=== PATIENT | female | born 1955 | race Caucasian/White ===

== ENCOUNTER → 2018-06-07 15:14 | Outpatient (CLI) | payer OTHER, SELFPAY ==
--- NOTE | 2018-06-07 | DI.MG.S_ITS ---
BILATERAL DIGITAL SCREENING MAMMOGRAM 3D/2D WITH CAD: 06/07/2018 CLINICAL: Routine screening. Comparison is made to exams dated: 05/06/2017 mammogram, 05/05/2016 mammogram, and 04/17/2015 mammogram - [facility]. The tissue of both breasts is heterogeneously dense. This may lower the sensitivity of mammography. Current study was also evaluated with a Computer Aided Detection (CAD) system. There are benign calcifications in the left breast. No significant masses, calcifications, or other findings are seen in either breast. There has been no significant interval change. IMPRESSION: BENIGN There is no mammographic evidence of malignancy. A 1 year screening mammogram is recommended. This exam was interpreted at Station ID: [id number]. NOTE: For mammograms, a report in lay terms will be sent to the patient. Approximately 15% of breast malignancies will not be visualized mammographically. In the management of a palpable breast mass, a negative mammogram must not discourage biopsy of a clinically suspicious lesion. Electronically Signed By: Cody dempsey/blake:06/07/2018 16:38:38 letter sent: Normal Exam ACR BI-RADS Category 2: Benign Finding(s) 3342F
== END ==
PROVIDERS: PCP Nurse Practitioner Family; Visit Provider Nurse Practitioner Family
DX: Z12.31 Encounter for screening mammogram for malignant neoplasm of breast (principal)
CPT/HCPCS: 77063; 77067

== ENCOUNTER → 2018-07-07 14:38 | Outpatient (CLI) | payer OTHER, SELFPAY | PROVIDERS: PCP Nurse Practitioner Family; Visit Provider Nurse Practitioner Family | DX: M85.852 Other specified disorders of bone density and structure, left thigh (principal) | CPT/HCPCS: 77080 ==

== ENCOUNTER → 2019-06-28 16:41 | Outpatient (CLI) | payer BC, SELFPAY ==
--- NOTE | 2019-06-28 16:45 | DI.MG.S_ITS ---
BILATERAL DIGITAL SCREENING MAMMOGRAM 3D/2D WITH CAD: 06/28/2019 CLINICAL: Routine screening. Comparison is made to exams dated: 06/07/2018 mammogram, 05/06/2017 mammogram, and 05/05/2016 mammogram - [facility]. The tissue of both breasts is heterogeneously dense. This may lower the sensitivity of mammography. Current study was also evaluated with a Computer Aided Detection (CAD) system. There are benign masses in the right breast. There also are benign calcifications and masses in the left breast. No significant masses, calcifications, or other findings are seen in either breast. There has been no significant interval change. IMPRESSION: There is no mammographic evidence of malignancy. A 1 year screening mammogram is recommended. This exam was interpreted at Station ID: [id number]. NOTE: For mammograms, a report in lay terms will be sent to the patient. Approximately 15% of breast malignancies will not be visualized mammographically. In the management of a palpable breast mass, a negative mammogram must not discourage biopsy of a clinically suspicious lesion. Electronically Signed By: Madison traore/blake:06/29/2019 07:45:24 letter sent: Normal Exam ACR BI-RADS Category 2: Benign Finding(s) 3342F
== END ==
PROVIDERS: PCP Nurse Practitioner Family; Visit Provider Nurse Practitioner Family
DX: Z12.31 Encounter for screening mammogram for malignant neoplasm of breast (principal)
CPT/HCPCS: 77063; 77067

== ENCOUNTER → 2021-07-25 15:14 | Outpatient (CLI) | payer OTHER, SELFPAY ==
--- NOTE | 2021-07-25 15:17 | DI.MG.S_ITS ---
BILATERAL DIGITAL SCREENING MAMMOGRAM 3D/2D WITH CAD: 07/25/2021 CLINICAL: Routine screening. Comparison is made to exams dated: 06/28/2019 mammogram, 06/07/2018 mammogram, and 05/06/2017 mammogram - [facility]. The tissue of both breasts is heterogeneously dense. This may lower the sensitivity of mammography. Current study was also evaluated with a Computer Aided Detection (CAD) system. There is a new 0.5 cm oval equal density asymmetry in the right breast posterior depth lateral region seen on the craniocaudal view only. No other significant masses, calcifications, or other findings are seen in either breast. IMPRESSION: INCOMPLETE: NEEDS ADDITIONAL IMAGING EVALUATION The new 0.5 cm oval equal density asymmetry in the right breast is indeterminate. Additional views with possible ultrasound are recommended. This exam was interpreted at Station ID: [id number]. NOTE: For mammograms, a report in lay terms will be sent to the patient. Approximately 15% of breast malignancies will not be visualized mammographically. In the management of a palpable breast mass, a negative mammogram must not discourage biopsy of a clinically suspicious lesion. Electronically Signed By: Estrada lancaster/blake:07/25/2021 16:04:57 letter sent: Additional Imaging Needed ACR BI-RADS Category 0: Incomplete 3340F
== END ==
PROVIDERS: PCP Family Medicine; Referring Provider Family Medicine; Visit Provider Family Medicine
DX: Z12.31 Encounter for screening mammogram for malignant neoplasm of breast (principal)
CPT/HCPCS: 77063; 77067

== ENCOUNTER → 2021-08-16 13:26 | Outpatient (CLI) | payer OTHER, SELFPAY ==
--- NOTE | 2021-08-16 13:27 | DI.MG.S_ITS ---
UNILATERAL RIGHT DIGITAL DIAGNOSTIC MAMMOGRAM 3D/2D WITH ADDITIONAL VIEWS: 08/16/2021 CLINICAL: Additional evaluation requested from prior study. Comparison is made to exams dated: 07/25/2021 mammogram, 06/28/2019 mammogram, and 06/07/2018 mammogram - [facility]. The tissue of right breast is heterogeneously dense. This may lower the sensitivity of mammography. There is a 0.5 cm asymmetry in the right breast posterior depth lateral region seen on the craniocaudal view only. No other significant masses or calcifications are seen in the breast. IMPRESSION: BENIGN The 0.5 cm asymmetry in the right breast is consistent with fibroglandular tissue and is benign. There is no mammographic evidence of malignancy. Return to annual mammogram screening schedule is recommended. This exam was interpreted at Station ID: [id number]. NOTE: For mammograms, a report in lay terms will be sent to the patient. Approximately 15% of breast malignancies will not be visualized mammographically. In the management of a palpable breast mass, a negative mammogram must not discourage biopsy of a clinically suspicious lesion. Electronically Signed By: Ye Alexis M.D., jr/blake:08/16/2021 13:49:56 letter sent: Normal Exam ACR BI-RADS Category 2: Benign Finding(s) 3342F
== END ==
PROVIDERS: PCP Family Medicine; Referring Provider Family Medicine; Visit Provider Family Medicine
DX: R92.8 Other abnormal and inconclusive findings on diagnostic imaging of breast (principal)
CPT/HCPCS: 77065; G0279

== ENCOUNTER → 2021-12-04 09:35 | Outpatient (CLI) | payer OTHER, SELFPAY ==
[2021-12-04 12:42] LABS: COVID19 -Nasal RAPID Negative (Negative)
== END ==
PROVIDERS: PCP Family Medicine; Visit Provider Nurse Practitioner Family
DX: Z01.812 Encounter for preprocedural laboratory examination (principal); Z20.822 Contact with and (suspected) exposure to COVID-19
CPT/HCPCS: 87635

== ENCOUNTER 2021-12-06 15:02 | Day surgery (SDC) | payer OTHER, SELFPAY ==
[2021-12-06] VITALS (9 sets, daily range): BP systolic 91–123; BP diastolic 51–76; PULSE 52–79; RESP 13–20; TEMP 36–36.6; O2SAT 92–98; BMI 33.2
--- NOTE | 2021-12-06 12:31 | PM.HP.1 ---
History of Present Illness History of Present Illness Date Patient Seen: 12/06/21 Chief complaint: SCREENING COLONOSCOPY Narrative: 66 Years Old Female seen today for consideration of a screening colonoscopy. Last colonoscopy in 2003 indicated for change in bowel habits and right lower quadrant pain, normal. Random biopsies taken in the TI and colon, all unremarkable. FIT test on 09/18/2021 positive. There have been no lower GI symptoms suggesting disease such as change in bowel habits, bleeding, abdominal pain or anemia. There's been no family history of colon cancer or colon polyps. Overall health issues have been stable, including no major cardiac events for at least 6 weeks. Current Medications (verified): 1) Meloxicam 15 Mg Tablet (Meloxicam) .... Take 1 tablet by mouth once a day 2) Ambien 5 Mg Tablet (Zolpidem) .... Take 1/3 tablet by mouth every night as needed 3) Airborne Vits Zinc Elderberry 65 Mg-3.15 Mcg- 3.35 Mg-1 Mg Tablet,chewable (Vit C-Vit T5-N-Nicx-Elderberry) .... Use as directed 4) Multivitamins Caps (Multiple Vitamin) .... Take 1 by mouth once a day 5) Bentyl 10 Mg Oral Capsule .... 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 Patient History Medical History (Updated 12/06/21 @ 16:07 by Tobin Prieto RN) Trigger finger Meds Home Medications and Allergies Home Medications Medication Instructions Recorded Confirmed Type Claritin 10 mg SUBLINGUAL DAILY 12/06/21 12/06/21 History Tylenol 325 mg PO PRN PRN 12/06/21 12/06/21 History meloxicam 15 mg PO PRN PRN 12/06/21 12/06/21 History zolpidem 5 mg tablet (Ambien) 5 mg PO BEDTIME PRN 12/06/21 12/06/21 History Allergies Allergy/AdvReac Type Severity Reaction Status Date / Time No Known Drug Allergies Allergy Verified 12/06/21 15:15 Review of Systems Review of Systems Narrative: All remaining ROS were reviewed and negative except as addressed. Exam Narrative Exam Narrative: GENERAL: Alert and oriented, appearing stated age and in no acute distress. HEENT: Head normocephalic/atraumatic. Extraocular movements intact. LUNGS: Clear to ausculation bilaterally, no wheezes, rhonchi or rales. CV: Normal S1 and S2 with regular rate and rhythm, no audible murmurs, rubs or gallops. ABDOMEN: Soft, non-tender, non-distended, no organomegaly. Positive bowel sounds. EXTREMITIES: No clubbing, cyanosis, or edema. NEURO: Cranial nerves II through XII grossly intact, no focal deficits. PSYCH: Alert and oriented x 3. SKIN: No concerning lesions. Assessment & Plan Assessment & Plan narrative: 1. Positive FIT 2. Screening for colon cancer Plan for colonoscopy. The nature and character of the procedure as well as anticipated results were discussed. The possibility of not completing the procedure was also discussed. Possible complications including aspiration pneumonia, bleeding, perforation and reaction to medications either for sedation or preparation and missed lesions were discussed. Questions were answered and proceeding to the colonoscopy was elected. Informed consent signed. I sincerely appreciate the referral allowing me to participate in this patient's care. Please contact me with any questions or concerns.
--- NOTE | 2021-12-06 12:33 | PM.OP.COLON ---
Operative Date/Time/Diagnoses Date of procedure: 12/06/21 Procedure Notes SCOAP/Timeout: 4:34 p.m. Procedure in detail: ENDOSCOPIST: Serena Fitzgerald MD Sedation RN: Ayala Lew RN Sedation start time: 4:35 p.m. Sedation end time: 4:57 p.m. PROCEDURE: Colonoscopy INDICATIONS: 1. Positive FIT test 2. Screening for colon cancer MEDICATION: Levsin 0.125 mg sublingual, incremental doses of Versed and fentanyl until appropriate level sedation achieved. ASA CLASS: 2 CECAL WITHDRAWAL TIME: 6 minutes COMPLICATIONS: None. EXTENT OF PROCEDURE: Cecum. QUALITY OF PREP: Good with portions of liquid stool. PROCEDURE: Prior to insertion of the colonoscope, a digital rectal examination was accomplished with circumferential palpation of the distal rectal mucosa without significant findings being noted. The high-definition colonoscope was passed into the rectum in the usual fashion and advanced over to the cecum without difficulty. The ileocecal valve, appendiceal stoma, and medial wall all could be inspected and no abnormalities were seen. ASCENDING COLON: As the colonoscope was withdrawn, care was taken to expose and inspect the haustral folds and no abnormalities were seen. HEPATIC FLEXURE: Normal, no polyps, diverticula or other abnormalities. TRANSVERSE COLON: Normal, no polyps, diverticula or other abnormalities. DESCENDING COLON: Moderate diverticulosis, otherwise, normal, no polyps, or other abnormalities. SIGMOID COLON: Moderate diverticulosis, otherwise, normal, no polyps, or other abnormalities. RECTUM: Normal. J maneuver was produced. There was no significant perianal disease. The J maneuver was broken. The remainder of the rectum was inspected and there was minor thrombosis, external hemorrhoid disease. The scope was withdrawn. IMPRESSION: 1. Normal colonoscopy 2. Diverticulosis, moderate 3. External hemorrhoid disease, minor thrombosis, likley etiology of positive FIT test PLAN: 1. Repeat colonoscopy in 10 years. 2. For hemorrhoids, high-fiber diet and increased hydration recommended. The possibility of a missed lesion including a malignancy has been discussed with the patient previously. Potential alarm symptoms have been discussed and should be reported immediately.
[2021-12-06] MEDS: HYOSCYAMINE 0.125 MG TABLET PO (15:16)
[2021-12-06] MEDS: LACTATED RINGERS 1,000 ML 200 ML IV (15:57)
[2021-12-06] MEDS: fentaNYL 250 MCG/5 ML INJ IV (16:22)
[2021-12-06] MEDS: MIDAZOLAM 5 MG/5 ML VIAL IV (16:23)
== END 2021-12-06 17:55 | disposition home or self-care (01) ==
PROVIDERS: PCP Internal Medicine; Referring Provider Internal Medicine; Visit Provider Student in an Organized Health Care Education/Training Program
PROC: 0DJD8ZZ Inspection of Lower Intestinal Tract, Via Natural or Artificial Opening Endoscopic (ICD-10-PCS; CPT 45378; principal; 2021-12-06 16:00)
DX: R19.5 Other fecal abnormalities (principal); K57.30 Diverticulosis of large intestine without perforation or abscess without bleeding; K64.4 Residual hemorrhoidal skin tags
CPT/HCPCS: 45378; J2250; J3010

== ENCOUNTER → 2022-03-13 15:58 | Outpatient (CLI) | payer OTHER, SELFPAY ==
[2022-03-17 17:00] LABS: ANA Screen, IFA Negative (.)
== END ==
PROVIDERS: PCP Internal Medicine; Referring Provider Nurse Practitioner Family; Visit Provider Nurse Practitioner Family
DX: L30.8 Other specified dermatitis (principal)
CPT/HCPCS: 36415; 86038

== ENCOUNTER → 2022-07-28 15:47 | Outpatient (CLI) | payer OTHER, SELFPAY ==
--- NOTE | 2022-07-28 15:48 | DI.MG.S_ITS ---
BILATERAL DIGITAL SCREENING MAMMOGRAM 3D/2D WITH CAD: 07/28/2022 CLINICAL: Routine screening. Comparison is made to exams dated: 07/25/2021 mammogram, 06/28/2019 mammogram, and 06/07/2018 mammogram - [facility]. Both breasts are heterogeneously dense, which may obscure small masses (category c / 51-75% glandular tissue). Current study was also evaluated with a Computer Aided Detection (CAD) system. No significant masses, calcifications, or other findings are seen in either breast. There has been no significant interval change. IMPRESSION: NEGATIVE There is no mammographic evidence of malignancy. A 1 year screening mammogram is recommended. Based on the Tyrer Cuzick model (a risk assessment model) the patient's lifetime risk is 10.7% and her 10 year risk is 5.2%. According to the ACR, ACS, and NCCN guidelines, an annual breast MRI exam along with mammogram is recommended if the patient's lifetime risk is 20% or greater. This exam was interpreted at Station ID: [id number]. NOTE: For mammograms, a report in lay terms will be sent to the patient. Approximately 15% of breast malignancies will not be visualized mammographically. In the management of a palpable breast mass, a negative mammogram must not discourage biopsy of a clinically suspicious lesion. Electronically Signed By: Estrada lancaster/blake:07/29/2022 07:16:37 letter sent: Normal Exam ACR BI-RADS Category 1: Negative 3341F
== END ==
PROVIDERS: PCP Internal Medicine; Referring Provider Internal Medicine; Visit Provider Internal Medicine
DX: Z12.31 Encounter for screening mammogram for malignant neoplasm of breast (principal)
CPT/HCPCS: 77063; 77067

== ENCOUNTER → 2022-08-15 16:16 | Outpatient (CLI) | payer OTHER, SELFPAY ==
[2022-08-15 16:49] LABS: Add Manual Diff / Slide Review NO; Basophils Absolute Auto 100 /uL (0-100); Eosinophils Absolute Auto 200 /uL (0-450); Eosinophils Percent Auto 2.8 % (2-4); Hematocrit 38.4 % (36-46); Hemoglobin 13.3 g/dL (12.0-16.0); Lymphocytes Absolute Auto 1800 /uL (1100-4500); Lymphocytes Percent Auto 33.7 % (25-40); Mean Corpuscular HGB Conc 34.6 % (30-36); Mean Corpuscular Hemoglobin 32.3 PG (26-34); Mean Corpuscular Volume 93.2 fL (80-100); Monocytes Absolute Auto 500 /uL (0-900); Neutrophils Absolute Auto 2900 /uL (1500-7000); Neutrophils Percent Auto 53.5 % (50-75); Platelet Count 264 X10^3/uL (150-400); Red Blood Cell Count 4.12 X10^6/uL (4.0-5.2); White Blood Cell Count 5.4 X10^3/uL (4.5-11.0)
[2022-08-15 16:58] LABS: Hemoglobin A1C% w Est Avg Glu 5.3 % (4.0-6.0)
[2022-08-15 17:18] LABS: BUN Creatinine Ratio 30.3 (6-22); Blood Urea Nitrogen 27 mg/dL (7-17); Calcium 9.4 mg/dL (8.4-10.2); Carbon Dioxide 26 mmol/L (22-32); Chloride 101 mmol/L (98-107); Estimated Glomerular Filt Rate > 60 mL/min (>60); Glucose 98 mg/dL (80-110); HEMOLYSIS < 15 (0-50); Potassium 4.3 mmol/L (3.4-5.1); Sodium 137 mmol/L (137-145)
[2022-08-15 17:28] LABS: Appearance Urine UA CLEAR; Bilirubin Urine UA NEGATIVE (NEGATIVE); Color Urine UA YELLOW; Glucose Urine UA NEGATIVE (Negative); Ketones Urine UA NEGATIVE (NEGATIVE); Leukocyte Esterase Urine UA 1+ (NEGATIVE); Nitrite Urine UA NEGATIVE (Negative); Occult Blood Urine UA TRACE-LYSED (Negative); Protein Urine UA NEGATIVE (Negative); Specific Gravity Urine UA <=1.005 (1.000-1.035); Urobilinogen Urine UA 0.2 E.U./dL (0.2)
[2022-08-15 17:29] LABS: pH Urine UA 5.5 (4.5-8.0)
[2022-08-15 17:45] LABS: Bacteria Urine Occasional (0-1); Culture Indicated Urine Specimen Cultured; RBC Urine 0-1/HPF (0-5/HPF); Squamous Epithelial Cell Urine 0-1 /HPF (0-5/HPF); WBC Urine 5-10/HPF (0-5/HPF)
== END ==
PROVIDERS: PCP Internal Medicine; Referring Provider Orthopaedic Surgery; Visit Provider Orthopaedic Surgery
DX: Z01.818 Encounter for other preprocedural examination (principal); Z01.812 Encounter for preprocedural laboratory examination; R73.9 Hyperglycemia, unspecified; N39.0 Urinary tract infection, site not specified
CPT/HCPCS: 36415; 80048; 81001; 83036; 85025; 87086; 93005

== ENCOUNTER → 2022-09-29 13:38 | Outpatient (CLI) | payer OTHER, SELFPAY ==
[2022-09-29 15:16] LABS: COVID19 -Nasal RAPID Negative (Negative)
== END ==
PROVIDERS: PCP Internal Medicine; Referring Provider Orthopaedic Surgery; Visit Provider Orthopaedic Surgery
DX: Z20.822 Contact with and (suspected) exposure to COVID-19 (principal)
CPT/HCPCS: 87635; C9803

== ENCOUNTER 2022-10-02 05:44 | Day surgery (SDC) | payer OTHER, SELFPAY ==
[2022-09-24 14:03] VITALS: BMI 30.8
[2022-10-02] VITALS (11 sets, daily range): BP systolic 83–131; BP diastolic 46–77; PULSE 67–85; RESP 11–28; TEMP 35.5–36.6; O2SAT 95–100; BMI 30.8; BMI 34.6
[2022-10-02] MEDS: PREGABALIN 75 MG CAPSULE PO (07:14)
[2022-10-02] MEDS: ACETAMINOPHEN 325 MG TABLET 975 MG PO (07:14)
[2022-10-02] MEDS: CELECOXIB 200 MG CAPSULE PO (07:15)
[2022-10-02] MEDS: LACTATED RINGERS 1,000 ML 42 ML IV (07:24)
--- NOTE | 2022-10-02 07:44 | PM.PREOP ---
Pre-operative Note COVID-19 COVID-19 status: Negative Interval Note History & Physical reviewed/Exam performed by Physician: Yes Changes to H&P: No
--- NOTE | 2022-10-02 07:45 | PM.OP.1 ---
Operative Date/Time/Diagnoses Date of procedure: 10/02/22 Time of procedure: 08:00 Pre-op diagnosis: left hip OA Post-op diagnosis: same Procedure & Clinicians Procedure: left hip anterior approach Same procedure as scheduled: Yes Indications: The patient has had progressively worsening left hip pain with radiographic changes consistent with arthritis. Non-operative management has failed and the patient has requested total hip replacement. The risks, benefits and alternatives to surgery were discussed with the patient prior to proceeding. Risks discussed included, but were not limited to, failure to relieve pain, leg length discrepancy, dislocation, stiffness, infection, nerve damage, deep venous thrombosis, pulmonary embolism, stroke, coma, heart attack, permanent paralysis and , as well as the potential need for eventual revision of the prosthetic. Surgeon: Fiona Campos Slitter Creaser Slotter Helper: Mario Lewis Anesthesia Type: Spinal and Sedation Operative Notes Findings: Severe left hip osteoarthritis, adequate stability Closure Type: primary Specimen(s): none sent Prosthetic devices, grafts, tissues, transplants, or devices: Campos and Nephew R3 48, anthology standard offset 4, -3 by 32 Oxinium, neutral poly liner Estimated Blood Loss (mL): 250 Blood products transfused: none Procedure in detail: The patient was brought to the operating room. Patient was carefully positioned in the supine position. Time-out was performed and antibiotics were given. Anesthesia was induced. She was positioned in the on the table in order to allow hyperextension of the hip. The left lower extremity was prepped and draped in a standard sterile fashion. An anterior left hip incision was made 1 fingerbreadth lateral to the anterior superior iliac spine and extended distally towards the greater trochanter. Dissection was carried out through skin and subcutaneous tissues. Superficial hemostasis was achieved. The fascia over the tensor fascia tadeo was defined and incised with a knife. Two Allis clamps were used to grasp the fascia. Tensor fascia tadeo was retracted laterally. A gelpi retractor was placed. Dissection was carried out down along the neck. The circumflex vessels were carefully identified and cauterized with the Aqua Mantis. There was good visualization of the femoral neck. A Cobra was placed superior to the neck and the gluteus fibers were carefully stripped from that superior aspect of the capsule. A 2nd retractor was placed along the inferior aspect of the neck. The rectus insertion along the capsule was partially released. A 3rd retractor that was then gently placed over the rim of the acetabulum under the rectus. Capsule was carefully incised and released from the intertrochanteric line circumferentially superior to the mid sagittal line and inferiorly to the mid sagittal line until the lesser trochanter was palpable. A tag stitch was placed both in the superior and inferior limb of the capsular insertion. Along the acetabulum capsule was also released up to the mid sagittal 12:00 position. A portion of the labrum was resected. A saw was used to perform an osteotomy at the level of the intertrochanteric line and the junction of the superior femoral neck leaving approximately 1 finger breath of residual inferior neck above the lesser trochanter. A 2nd cut was made along the femoral neck at the base of the head and a napkin ring of neck was removed. Corkscrew was placed in the femoral head and the head was removed without difficulty. Retractors were then repositioned around the acetabulum. Residual labrum was resected and additional osteophytes were removed. A reamer that was 4 mm below the templated size was placed by hand in the acetabulum and it was reamed to centralize the acetabulum. It was then reamed up to 2 under the templated size and fluoroscopy was brought in to confirm the position of the reaming and depth of reaming. I reamed 1 under the anticipated size. A trial cup was placed and noted that it was appropriately sized and fluoroscopy confirmed position and depth. The component was open and inserted without difficulty fluoroscopic imaging was used to confirm that the cup had been adequately seated and was well positioned. It was further stabilized with a single screw. Neutral poly liner was placed. The cup was tested and noted to be stable. Attention was then directed to the femur. The femur was gently hyperextended additional capsular release was performed as needed in order to allow adequate visualization of the proximal femur with elevation of the femur. Patient was placed in a hyperextended slightly adducted position with maximum external rotation. Box osteotome was used to check for any residual neck as well as sclerotic bone along the trochanter. [place] pepper was placed in the femur. Additional broaching was performed. Canal finder was used to determine the alignment of the canal and position. Size 1 broach was placed. The canal was then appropriately broached up to the templated size as long as there was adequate stability of the broach and serial advancement of the broach without excessive impingement. Specific attention was directed at avoiding varus attempting to direct the distal aspect of the broach more anteriorly and avoiding excessive anteversion. Trial reduction showed acceptable range of motion, good stability, no posterior impingement, caodaism of leg length and appropriate lateral shuck. I also hyperflexed the hip and checked that there was no impingement anteriorly and there was good stability with flexion, adduction and internal rotation. Marcaine and Exparel were injected. The stem was placed without difficulty. Repeat trial reduction and x-ray showed acceptable overall position, length, and no evidence of the femoral fracture. Final head was placed. Wound was meticulously irrigated with normal saline. The hip was reduced and additional Exparel and Marcaine were injected. The capsule was closed with interrupted nonabsorbable sutures. The fascia of the tensor was closed with interrupted and running Vicryl. No drain was placed. Any tensor fascia tadeo muscle that appeared to be contused or injured which was a minimal amount was carefully resected. Capsule around the tensor was injected with Exparel and Marcaine. The skin was closed with barbed stitches for the subcutaneous tissue and skin. We also used surgical glue. The wound was dressed sterilely. Brief Betadine soak was also used and was meticulously irrigated with normal saline. Patient was transferred to recovery room in satisfactory condition. Complications: none Post-operative Condition: stable Disposition: Acute Care Plan for aftercare: The patient will be maintained on a standard total hip replacement protocol with weight bearing as tolerated and anterior hip precautions. The patient will receive Aspirin and sequential compression devices for DVT prophylaxis. The patient will be discharged home when safe for the home environment.
--- NOTE | 2022-10-02 08:00 | DI.RAD.S_ITS ---
PROCEDURE: XR HIP W PEL IF DONE LT 2V INDICATIONS: inner op left hip TECHNIQUE: 4 intraoperative fluoroscopic images of left hip acquired. COMPARISON: None. FINDINGS: Intraoperative fluoroscopic images of left hip and pelvis shows left total hip arthroplasty in progress. IMPRESSION: Fluoro guidance was provided intraoperatively for left total hip arthroplasty. Dictated by: Rudy Dodge M.D. on 10/02/2022 at 14:22 Approved by: Rudy Dodge M.D. on 10/02/2022 at 14:22
[2022-10-02] MEDS: CEFAZOLIN 2 GM/100 ML PREMIX 100 ML IV ×2 (08:20→15:10)
[2022-10-02] MEDS: TRANEXAMIC ACID 1,000 MG VIAL 1000 MG INJ (08:32)
--- NOTE | 2022-10-02 08:48 | SUR.OPER ---
Patient supine on padded [place] table, right arm on padded arm board at <90, left arm padded and secured with tape across patient's chest, both legs secured in padded traction boots and positioned per surgeon, padded post at patient's groin, pressure points checked and padded.
[2022-10-02] MEDS: BUPIVACAINE LIPOSOME 266 MG/20 ML VIAL INJ (09:22)
[2022-10-02] MEDS: BUPIVACAINE 0.25% (PF) 60 ML, EPINEPHrine 0.3 MG INJ (09:23)
--- NOTE | 2022-10-02 09:32 | SUR.OPER ---
upon placing spinal, patient began to breath very quickly. pale, clammy skin. pt stated was very hot and needed to lay down. once spinal placed, pt stated history of panic attacks and that she believed she was having one. witnessed by anesthesia pt eventually able to slow breathing and lay still, while answering questions
--- NOTE | 2022-10-02 11:00 | DI.RAD.S_ITS ---
PROCEDURE: XR HIP W PEL IF DONE LT 2V INDICATIONS: LEFT TOTAL HIP TECHNIQUE: AP pelvis and lateral view of the left hip acquired. COMPARISON: [facility], [place], XR HIP W PEL IF DONE LT 2V, 10/02/2022, 9:39. FINDINGS: Bones: Patient is status post left hip arthroplasty, with hardware components in expected positions. The hip joint appears congruent. The visualized bony structures appear intact. Soft tissues: Overlying postoperative changes are noted. No suspicious soft tissue densities. IMPRESSION: Postop changes from left total hip arthroplasty with anatomic left hip alignment. Dictated by: Rudy Dodge M.D. on 10/02/2022 at 14:21 Approved by: Rudy Dodge M.D. on 10/02/2022 at 14:21
--- NOTE | 2022-10-02 11:44 | PC.NURSE ---
Day shift: Pt in room at approx 1135 from PACU. Oriented to room and call light. Agrees to not get OOB w/o help from staff. CMS intact. Dressing is CDI. Tolerating SCD's. Left hip pain reported 12/09. Pt is wanting to d/c home later today. VS WNL. RA 99%. Encouraged to cough and deep breath. Instructed on I.S. use. Pt is A&Ox4 and calm and cooperative. Tolerating ice water.
[2022-10-02] MEDS: LACTATED RINGERS 1,000 ML 125 ML IV (12:23)
[2022-10-02] MEDS: ACETAMINOPHEN 325 MG TABLET 650 MG PO (12:23)
[2022-10-02] MEDS: IBUPROFEN 400 MG TABLET PO (12:25)
--- NOTE | 2022-10-02 15:00 | PT.IIE ---
Current Diagnoses Unilateral primary osteoarthritis, left hip (10/02/22) Surgery Performed Operation Date: 10/02/22 07:45 Actual Procedures p Total Hip Arthroplasty/Anterior Approach(Left) - Fiona Campos MD Surgical History (Last Reviewed 10/02/22 @ 07:06 by Tobin Prieto, RN) Hx of colonoscopy (12/06/21) Hx of thumb surgery Hx of tonsillectomy Medical History (Last Reviewed 10/02/22 @ 07:03 by Tobin Prieto, HERBERTH) Lichen planopilaris Osteoarthritis Precancerous lesion Vertigo Physical Therapy Inpatient Evaluation/Re-Eval M1 PT/OT-IP Prior Functional Status Start: 10/02/22 16:56 Freq: NEEDED Status: Active Protocol: Document 10/02/22 15:00 AB (Rec: 10/02/22 17:08 AB [id number]) Medical Review Prior Functional Status Medical History Reviewed Yes Communication able to make needs known Mobility and Gait pt stated that she is independent with all mobilities and ambulation without AD Social History Household Members none Living Arrangements House Number of Floors (Floors) Two Floors Number of Stairs To Enter/Railing? 2 steps without rails to enter Home Environment Standard Height Toilet,Walk in Shower Home Equipment Four Wheel Walker,Straight Cane,Hand Held Shower Additional Social History Comment pt's friend Dionte will stay and assist her as long as needed M2 PT-IP Current Condition Start: 10/02/22 16:56 Freq: NEEDED Status: Active Protocol: Document 10/02/22 15:00 AB (Rec: 10/02/22 17:08 AB [email or web address]) Physical Therapy Current Condition Current Condition Evaluation Date 10/02/22 Treatment Diagnosis s/p L EVA anterior approach; difficulty in walking Onset Date 10/02/22 M3 PT-IP Subjective Start: 10/02/22 16:56 Freq: NEEDED Status: Active Protocol: Document 10/02/22 15:00 AB (Rec: 10/02/22 17:08 AB [email or web address]) Subjective Physical Therapy Visit Type Type Initial Evaluation Visit Start Time 15:00 Visit Stop Time 16:25 Total Visit Minutes 85 Number of CHILD DEVELOPMENT CONSULTANT Visits 0 Physical Therapy Visit Comments Patient Comments wanting to go home Therapy Pain Assessment Pain When Pain Assessed At Rest Location Left Anterior Hip Intensity 1 Scale Used Numeric (0 - 10) Pain Management Techniques Distraction,Modification of Treatment,Re-positioning, Timing of Activity with Medications M4 PT-IP Mobility and Gait Start: 10/02/22 16:56 Freq: NEEDED Status: Active Protocol: Document 10/02/22 15:00 AB (Rec: 10/02/22 17:08 AB [id number]) PT-Bed Mobility Assessment Supine to Sit Supine to Sit Standby Assistance Sit to Supine Sit to Supine Standby Assistance PT-Transfer Assessment Sit to and From Stand Sit to and from Stand Contact Guard Assistance,1 Person Assistance,Use of Upper Extremities Equipment Transfer Assistive Device Gait Belt,Front Wheeled Walker Orthotic/Prosthetic Devices or Brace: No Transfers Transfer Destination Chair Transfer Technique ambulated Transfer Ability Level of Assist Contact Guard Assistance,1 Person Assistance,Use of Upper Extremities Comments Mobility Comments educated pt and friend regarding pt's anterior hip precautions. pt completed supine to sit SBA with initial cues provided. pt repeated SBA withotu cues on 2nd rep. pt completed sit to stand from EOB CGA and ambulated in room using FWW CGA and cues for hip precautions. pt sat on the chair. educated pt on 4WW use/use of brakes. Caregiver training conducted. educated Dionte on how to use safety belt and how to assist pt. Dionte was able to put safety belt on and assisted pt with sit to and ambulation in room ~ 40 ft using 4WW CGA. pt sat back on chair and rested. pt requested to use the toilet. completed sit to stand with Dionte assisting pt and pt ambulated to the toilet using 4WW CGA. Pt's friend dionte was able to assist pt with toileting needs and out of the toilet and sat on chair using 4WW for support. educated pt on stair climbing techniques. pt ambulated from chair to platform set using 4WW cGA and completed up/down step using SPC and VP ANALYTICS min to mod A and cues. PT assisted pt on first set and repeated again with Dionte assisting on 2nd and 3rd set. pt ambulated back to her room using 4WW SBA and sat on chair. positioned on the chair. call light and table placed within reach. pt and friend without further concerns. Gait Assessment Gait Gait Assistance Required: Contact Guard Assist Distance (Feet) 30 Able to Maintain Weight Bearing Status Yes During Gait Assistive Devices Assistive Device Gait Belt,Front Wheeled Walker ,4 Wheeled Walker Orthotic/Prosthetic Devices or Brace: No Gait Deviations General Gait Pattern Antalgic,Decreased Stride Length,Decreased Feet Clearance Factors Limiting Gait Function Factors Limiting Gait Function Decreased Activity Tolerance, Decreased Strength,Difficulty Following Directions,Limited Range of Motion,Pain,Poor Balance,Poor Safety Awareness Stair Climbing Assessment Evaluation Level of Assist On Stairs Minimal Assistance,Moderate Assistance,1 Person Assistance Devices Stair Climbing Assistive Devices Straight Cane Technique/Endurance Stair Climbing Direction Ascend and Descend Stair Climbing Technique Step to Step Number of Steps Climbed 1 Query Text: Stair Climbing Set # Repetitions (reps) 3 Comments Stair Climbing Comments pls refer to mobility section for details PT-Balance Assessment Sitting Balance and Reactions Static Sitting Balance Ability Normal Dynamic Sitting Balance Ability Normal Standing Balance and Reactions Static Standing Balance Ability Fair Dynamic Standing Balance Ability Fair Device Used FWW M5 PT-IP Objective Assessments Start: 10/02/22 16:56 Freq: NEEDED Status: Active Protocol: Document 10/02/22 15:00 AB (Rec: 10/02/22 17:08 [email or web address]) Orientation Orientation/Cognition Level of Alertness Alert Orientation Name,Place,Situation Language Function Ability No Deficits Noted Safety Awareness Decreased Safety Awareness Memory Description Short Term Impaired Gross Range of Motion Lower Extremity ROM Assessment Within Functional Limits Strength Lower Extremity Strength Assessment Left Impaired Hip 3-/5 Knee 4-/5 Coordination Assessment Gross Coordination Gross Coordination WNL Sensation Assessment Sensation Gross Sensation WNL Muscle Tone Muscle Tone WNL Yes M6 PT-IP Treatment Start: 10/02/22 16:56 Freq: NEEDED Status: Active Protocol: Document 10/02/22 15:00 AB (Rec: 10/02/22 17:08 [email or web address]) Physical Therapy Treatment Education Education Provided Precautions,Weight Bearing Status,Post-Op Packet,Safety M7 PT-IP Assessment and Plan Start: 10/02/22 16:56 Freq: NEEDED Status: Active Protocol: Document 10/02/22 15:00 AB (Rec: 10/02/22 17:08 [email or web address]) PT Summary Assessment and Plan Potential Rehabilitation Potential Good Status of Condition at Evaluation Stable Summary Impairments Pain,ROM,Strength,Balance, Coordination,Sensation,Tone, Cognition,Bed Mobility, Transfers,Gait,Activity Tolerance Assessment Summary pt requiring SBA to CGA with ambulation using 4WW; min to mod A with stair climbing. caregiver training conducted and pt's friend able to assist pt safely. Pt plans to go home and has outpt PT set up. Pt may go home when medically stable. Goals Bed Mobility Goal Independent Transfer Goal Independent,Four Wheeled Walker Gait Goal Independent,Four Wheel Walker Gait Distance 200 Other Goals up/down 2 steps using SPC/VP ANALYTICS mod I Days to Meet Goals 5 Frequency of Treatment Frequency Of Treatment Twice a Day Treatment Plan Physical Therapy Treatment Plan Bed Mobility Training,Transfer Training,Gait Training, Therapeutic Exercise,Balance Retraining,Post Op Education, Discharge Planning,Hot or Cold Pack,Neuromuscular Re-ed, Coordination Retraining,Manual Therapy Precautions Anterior Hip Precautions No Hip Extension,No Hip External Rotation Weight Bearing Status Weight Bearing Status Weight Bear as Tolerated Allowed Weight Bearing Amount (enter % LLE WBAT or #) (%) Recommendations To Nursing Amount of Assist Needed 1 Person Assist Discharge Recommendations PT Discharge Recommendations Home with Assistance, Outpatient PT Transportation Needs at Discharge Private Vehicle
--- NOTE | 2022-10-02 15:53 | PM.PNPO.1 ---
Subjective Subjective Interval history: Patient is doing well. She was seen to get up without difficulty and ambulate with therapy. She would like to go to the bathroom to pee. Exam Vital Signs (past 8 hours): - 10/02/22 10:44 10/02/22 10:46 10/02/22 10:55 Temperature 97 F L Pulse Rate 80 82 81 Respiratory Rate 11 L 15 13 Blood Pressure 83/50 L 92/56 L 109/46 L Pulse Oximetry 95 98 100 Oxygen Delivery Method Room Air Room Air Room Air Oxygen Flow Rate 10/02/22 11:25 10/02/22 11:00 10/02/22 11:40 Temperature 97.2 F L 96.1 F L Pulse Rate 82 85 75 Respiratory Rate 16 28 H 16 Blood Pressure 117/61 101/60 131/50 L Pulse Oximetry 98 98 99 Oxygen Delivery Method Room Air Room Air Oxygen Flow Rate 0 10/02/22 12:10 10/02/22 12:40 10/02/22 13:40 Temperature 96 F L 96.9 F L Pulse Rate 67 72 82 Respiratory Rate 16 16 16 Blood Pressure 118/51 L 124/58 L 122/68 Pulse Oximetry 100 100 100 Oxygen Delivery Method Oxygen Flow Rate 0 0 0 10/02/22 14:40 Temperature 96.5 F L Pulse Rate 77 Respiratory Rate 16 Blood Pressure 120/67 Pulse Oximetry 99 Oxygen Delivery Method Oxygen Flow Rate 0 Oxygen Delivery Method Room Air Oxygen Flow Rate 0 Narrative Exam Narrative: Active straight leg raise in her right leg without difficulty, dressing intact, minimal pain in thigh, calf soft bilaterally neurovascular intact distal PFSH Medical History Lichen planopilaris Osteoarthritis Precancerous lesion Vertigo Surgical History Hx of colonoscopy (12/06/21) Hx of thumb surgery Hx of tonsillectomy Social History household members: none Smoking Status: Never smoker alcohol intake: current Assessment & Plan Post-op Postoperative Procedures: Procedures Operation Date: 10/02/22 07:45 Actual Procedure Side Surgeon p Total Hip Arthroplasty/Anterior Approach Left Fiona Campos MD Postoperative day: 0 Postoperative plan narrative: Patient is doing well immediately postoperatively after a anterior total hip. She would like to go home today. She does not have nausea. Her blood pressure is adequately controlled and she is been seen by therapy. Okay for discharge to home. Quality VTE Deep Vein Thrombosis/Pulmonary Embolism Present on Admission: No
--- NOTE | 2022-10-02 16:34 | PC.NURSE ---
Day shift: Paperwork signed and all questions answered. No new MD scripts. Pt has all personal belongings. Dressing remains CDI. CMS intact. VS WNL. Pt states I'm very happy to be going home now. Left unit at approx 1640 via WC. ERIN Andrew has taken her to car that Pt's friend is driving home.
== END 2022-10-02 16:36 | disposition home or self-care (01) ==
LOC: OR 05:45 → AC 05:46
PROVIDERS: PCP Internal Medicine; Referring Provider Orthopaedic Surgery; Visit Provider Orthopaedic Surgery
PROC: (CPT 27130; principal; 2022-10-02 07:45)
DX: M16.12 Unilateral primary osteoarthritis, left hip (principal)
CPT/HCPCS: 27130; 73502; 76000; 97161; 97530; C1776; C9290; J0171; J0690; J2704; J3010

== ENCOUNTER → 2023-07-29 11:56 | Outpatient (CLI) | payer OTHER, SELFPAY ==
[2022-10-02 12:19] VITALS: BMI 34.6
--- NOTE | 2023-07-29 | DI.MG.S_ITS ---
BILATERAL DIGITAL SCREENING MAMMOGRAM 3D/2D WITH CAD: 07/29/2023 CLINICAL: Routine screening. Comparison is made to exams dated: 07/28/2022 mammogram, 07/25/2021 mammogram, 06/28/2019 mammogram, and 06/07/2018 mammogram - [facility]. Both breasts are heterogeneously dense, which may obscure small masses (category c / 51-75% glandular tissue). Current study was also evaluated with a Computer Aided Detection (CAD) system. There are benign masses in both breasts. There also are benign calcifications in the left breast. No significant masses, calcifications, or other findings are seen in either breast. There has been no significant interval change. IMPRESSION: BENIGN There is no mammographic evidence of malignancy. A 1 year screening mammogram is recommended. Based on the Tyrer Cuzick model (a risk assessment model) the patient's lifetime risk is 10.2% and her 10 year risk is 5.2%. According to the ACR, ACS, and NCCN guidelines, an annual breast MRI exam along with mammogram is recommended if the patient's lifetime risk is 20% or greater. This exam was interpreted at Station ID: [id number]. NOTE: For mammograms, a report in lay terms will be sent to the patient. Approximately 15% of breast malignancies will not be visualized mammographically. In the management of a palpable breast mass, a negative mammogram must not discourage biopsy of a clinically suspicious lesion. Electronically Signed By: Lee rincon/blake:07/29/2023 17:43:17 letter sent: Normal Exam ACR BI-RADS Category 2: Benign Finding(s) 3342F
--- NOTE | 2023-07-29 | DI.RAD.S_ITS ---
Bone Density Report Name: DEEPIKA MARSHALL Age: 68 Sex: Female Ethnicity: White Date of : 1955 Indication: osteopenia; Referring Provider: CORINE SCHULER Study: Bone densitometry was performed. Exam Date: July 29, 2023 Accession number: [id number] Bone Density: Region BMD T-score Z-score Classification AP Spine(L1-L4) 0.951 -0.9 1.0 Normal Femoral Neck (Right) 0.657 -1.7 -0.1 Osteopenia Total Hip (Right) 0.772 -1.4 -0.1 Osteopenia Total Forearm (Left) 0.525 -1.0 0.7 Normal 1/3 Forearm (Left) 0.608 -1.4 0.3 Osteopenia UD Forearm (Left) 0.482 0.7 1.9 Normal World Health Organization criteria for BMD impression classify patients as: Normal (T-score at or above -1.0), Osteopenia (T-score between -1.0 and -2.5), or Osteoporosis (T-score at or below -2.5). 10-year Fracture Risk(1): Major Osteoporotic Fracture 9.5% Hip Fracture 1.2% Reported Risk Factors: [place] (), Neck BMD=0.657, BMI=31.2 (1) FRAX(R) Version 3.08. Fracture probability calculated for an untreated patient. Fracture probability may be lower if the patient has received treatment. Previous Exams: -- Region Exam Age BMD T-score BMD Change BMD Change Date g/cm2 vs Baseline vs Previous -- AP Spine (L1-L4) 07/29/2023 68 0.951 -0.9 -0.146 (-13.3%)# -0.146 (-13.3%)# 07/07/2018 63 1.096 0.4 Total Hip(Right) 07/29/2023 68 0.772 -1.4 -0.023 (-2.9%)# -0.023 (-2.9%)# 07/07/2018 63 0.795 -1.2 -- *Denotes significance at 95% confidence level, LSC for AP Spine = 0.022 g/cm2, LSC for Total Hip = 0.027 g/cm2 # Denotes dissimilar scan types or analysis methods Impression: The patient has low bone mass, based on the Right Femoral Neck T-score. The patient has an estimated ten-year risk of hip fracture of 1.2% and an estimated ten-year risk of major fracture of 9.5%, based on the WHO FRAX algorithm. No significant bone loss was observed. Discussion: BONE DENSITY IS LOW AT ONE OR MORE SKELETAL SITES. This patient's lowest T-score is low at one or more skeletal sites. It meets the World Health Organization's (WHO) criteria for low bone mass (T-score between -1.0 and -2.5). The patient's 10-year risk of fracture as calculated by FRAX is less than the threshold where pharmacological therapy is recommended by the National Osteoporosis Foundation (NOF). However, all treatment decisions require clinical judgment and consideration of individual patient factors, including patient preferences, comorbidities, previous drug use, risk factors not captured in the FRAX model (e.g., frailty, falls, vitamin D deficiency, increased bone turnover, interval significant decline in bone density) and possible under or overestimation of fracture risk by FRAX. The patient should follow a healthful lifestyle (good nutrition with adequate calcium and vitamin D, and appropriate weight-bearing exercise). Follow-Up: Consider repeating this study in 2 to 3 years to reassess this patient's status, or sooner if there is some new clinical indication. Reported by: JAYNE PEREZ M.D. on 07/29/2023 12:58:00 PM.
== END ==
PROVIDERS: PCP Internal Medicine; Referring Provider Internal Medicine; Visit Provider Internal Medicine
DX: Z12.31 Encounter for screening mammogram for malignant neoplasm of breast (principal); Z78.0 Asymptomatic menopausal state; M85.851 Other specified disorders of bone density and structure, right thigh
CPT/HCPCS: 77063; 77067; 77080; 77081

== ENCOUNTER → 2024-07-08 16:49 | Outpatient (CLI) | payer OTHER, SELFPAY ==
[2022-10-02 12:19] VITALS: BMI 34.6
== END ==
PROVIDERS: PCP Internal Medicine; Visit Provider Physician Assistant Surgical
DX: R30.0 Dysuria (principal)
CPT/HCPCS: 87077; 87086; 87186

== ENCOUNTER → 2024-07-24 13:34 | Outpatient (CLI) | payer OTHER, SELFPAY ==
[2022-10-02 12:19] VITALS: BMI 34.6
== END ==
PROVIDERS: PCP Internal Medicine; Visit Provider Physician Assistant Surgical
DX: R30.0 Dysuria (principal)
CPT/HCPCS: 87086; 87210

== ENCOUNTER → 2024-08-16 16:54 | Outpatient (CLI) | payer OTHER, SELFPAY ==
[2022-10-02 12:19] VITALS: BMI 34.6
--- NOTE | 2024-08-16 16:55 | DI.MG.S_ITS ---
BILATERAL DIGITAL SCREENING MAMMOGRAM 3D/2D WITH CAD: 08/16/2024 CLINICAL: Routine screening. Comparison is made to exams dated: 07/28/2022 mammogram, 07/29/2023 mammogram, and 07/25/2021 mammogram - [facility]. There are scattered areas of fibroglandular density (category b / 25%-50% glandular tissue). Current study was also evaluated with a Computer Aided Detection (CAD) system. There are benign masses in both breasts. There also are benign calcifications in the left breast. No significant masses, calcifications, or other findings are seen in either breast. There has been no significant interval change. IMPRESSION: BENIGN There is no mammographic evidence of malignancy. A 1 year screening mammogram is recommended. Based on the Tyrer Cuzick model (a risk assessment model) the patient's lifetime risk is 6.5% and her 10 year risk is 3.4%. According to the ACR, ACS, and NCCN guidelines, an annual breast MRI exam along with mammogram is recommended if the patient's lifetime risk is 20% or greater. This exam was interpreted at Station ID: [id number]. NOTE: For mammograms, a report in lay terms will be sent to the patient. Approximately 15% of breast malignancies will not be visualized mammographically. In the management of a palpable breast mass, a negative mammogram must not discourage biopsy of a clinically suspicious lesion. Electronically Signed By: Madison traore/blake:08/18/2024 12:49:48 letter sent: Normal Exam ACR BI-RADS Category 2: Benign
== END ==
LOC: MAMMO 16:54
PROVIDERS: PCP Internal Medicine; Referring Provider Internal Medicine; Visit Provider Internal Medicine
DX: Z12.31 Encounter for screening mammogram for malignant neoplasm of breast (principal)
CPT/HCPCS: 77063; 77067

== ENCOUNTER → 2025-09-09 08:44 | Outpatient (CLI) | payer OTHER, SELFPAY ==
[2022-10-02 12:19] VITALS: BMI 34.6
--- NOTE | 2025-09-09 08:46 | DI.MG.S_ITS ---
MM screening mammo BI: 09/09/2025. BI-RADS: 2 CLINICAL: 70-year old female for bilateral screening mammogram. Tyrer-Cuzick lifetime risk of 9.3%. No personal or first-degree family history of breast cancer. The patient had a prior left breast biopsy. PRIOR EXAMS 08/16/2024, 07/29/2023, 07/28/2022, 08/16/2021. MAMMOGRAPHY TECHNIQUE: 2D and 3D (tomosynthesis) digital mammographic views obtained, with additional images as needed for full coverage. Current study was also evaluated with a Computer Aided Detection (CAD) system. DENSITY C. The breasts are heterogeneously dense, which may obscure small masses. MAMMOGRAPHY FINDINGS Bilateral: There are multiple bilateral benign appearing round and oval circumscribed masses. There are no suspicious masses, calcifications, or other findings in the breast. IMPRESSION: * No evidence of malignancy with benign findings. RECOMMENDATIONS Bilateral * Annual screening mammography. OVERALL ASSESSMENT CATEGORY BI-RADS-2: Benign. [employer] recommends annual screening mammography beginning at age 40 for women with average risk of breast cancer. ELECTRONICALLY SIGNED: Arleth Maguire M.D. on 09/13/2025 at 10:05:47 PM PT Interpreting Station ID: [id number]
== END ==
PROVIDERS: PCP Family Medicine; Referring Provider Family Medicine; Visit Provider Family Medicine
DX: Z12.31 Encounter for screening mammogram for malignant neoplasm of breast (principal); R92.333 Mammographic heterogeneous density, bilateral breasts; Z68.32 Body mass index [BMI] 32.0-32.9, adult
CPT/HCPCS: 77063; 77067

== ENCOUNTER → 2025-09-16 08:54 | Outpatient (CLI) | payer OTHER, SELFPAY ==
[2022-10-02 12:19] VITALS: BMI 34.6
[2025-09-16 10:46] LABS: Cholesterol 226 mg/dL (140-199); HDL Cholesterol 66 mg/dL (40-60); Triglycerides 122 mg/dL (35-150)
== END ==
PROVIDERS: PCP Family Medicine; Referring Provider Family Medicine; Visit Provider Family Medicine
DX: E78.00 Pure hypercholesterolemia, unspecified (principal); Z68.32 Body mass index [BMI] 32.0-32.9, adult
CPT/HCPCS: 36415; 80061

== ENCOUNTER 2025-09-21 15:15 | Outpatient (RCR) | payer OTHER, SELFPAY ==
[2022-10-02 12:19] VITALS: BMI 34.6
--- NOTE | 2025-08-30 18:30 | OT.OPPOC ---
Physical, Occupational & Speech Therapy At [facility] Ghada Quinones [id number] 1955 Visit Care Team Role Provider Type Erica Rangel DO Primary Care Provider Physician Address: [address] [place] [address], [address], [address] Ashwin Murguia MD Attending Provider Physician Referring Provider Address: [facility] [address], [address] Occupational Therapy Plan of Care OT Outpatient Adult Evaluation Start: 08/30/25 12:55 Freq: Status: Active Protocol: Document 08/30/25 16:15 (Rec: 08/30/25 12:59 [id number]) General Information - Adult Visit Information Visit Number 1 of 12 Plan of Care Dates 08/30/25-11/22/25 Insurance no pre-auth initial eval only then call to request OT Information eval with EVAL/POC to Session Time Visit Start Date 08/30/25 Visit Start Time 16:15 Visit Stop Time 17:00 Setting Treatment Setting Outpatient Care Visit Type Note Type Initial Evaluation Referral Referring Physician Dr. Arnulfo Murguia Reason for Referral Radial styloid tenosynovitis Identification Identification Yes Confirmed Identification EMR Confirmed By Social Information Social History I may have a hard time changing all of those things Patient Questionnaires Quick Dash- Upper Extremity Quick Dash UE Score 6.8 Quick Dash UE 1 to 19% Impaired (Score 1-19) Impairment Quick Dash- Work and Sports Modules Quick Dash W&S Score 0 Quick Dash Work and 0% Impaired (Score 0) Sport Impairment Goals Objective Measurements Objective Michael?s test: negative Measurements Phalen?s test: elicited pain at R MP/CMC joint but no numbness or tingling Reports waking with R hand in fist position; pinky ligament more pronounced on R compared to L Pain onset most noticeable after activity rather than during activity; intermittent sharp pain at night that can wake patient Symptoms not provoked by gardening, weeding, painting, twisting doorknobs, or lifting weights Splint: described as thumb spica, poorly tolerated at night due to restrictiveness Training Technician and pinch strength not tested this visit (deferred due to patient request for kinesiotape education) Treatment Treatment Patient received extensive education regarding the anatomy and physiology of common conditions consistent with her presentation, including early Dupuytren?s contracture, mild/early de Quervain?s tenosynovitis, and mild carpal tunnel syndrome. Education emphasized the inflammatory process, symptom presentation, and the importance of activity modification and reduction of repetitive use to decrease exacerbation. Strategies for symptom management were reviewed including trial use of a brace as tolerated, ice massage, and use of anti- inflammatories as appropriate. Ergonomic recommendations such as use of a stationary mouse with roller ball and dictation for work tasks were discussed , although patient expressed hesitance toward work modifications. Short Term Goals Short Term Goals (Within 4 weeks): 1. Patient will demonstrate independence in use of kinesiotaping and ice massage for symptom management to improve ability to sleep through the night with no more than one episode of pain-related waking. 2. Patient will trial at least one ergonomic modification at work (e.g., stationary mouse or use of dictation) with therapist guidance and report impact on symptoms. 3. Patient will increase tolerance of orthotic wear ( thumb spica or alternative neoprene brace) to a minimum of 2 consecutive hours daily without significant discomfort. 4. Patient will report a decrease in frequency of sharp pain episodes from daily to no more than 3 times per week through consistent use of activity modification and self-management techniques. 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 Patient will report ability to complete quilting activities for 60 minutes with no more than 2/10 pain in R hand. 2. Patient will achieve uninterrupted sleep through the night at least 5 out of 7 nights per week without waking from R hand pain. 3. Patient will demonstrate at least 20% improvement in roller varnisher and pinch strength compared to initial measurement (to be taken at follow-up) without pain greater than 2/10. 4. Patient will demonstrate independence in ergonomic strategies, orthotic management, and home exercise program to support long-term self-management and prevention of symptom recurrence. Assessment/Plan Assessment Patient Response Good Rehabilitation Good Potential Impairments ADLs,Functional Activities,Pain,Recreational Activities Identified ,Meaningful Activities Treatment Assessment 70-year-old female with a history of R thumb MP trigger finger release and no history of carpal tunnel syndrome, referred to occupational therapy by Dr. Ashwin Murguia for evaluation of R hand pain with suspected de Quervain?s tenosynovitis. Symptoms began approximately six months ago and have been inconsistent , primarily characterized by sharp pain that arises after activity and nocturnal pain that occasionally wakes her from sleep. Functional tasks such as gardening, painting, and gripping objects are not significant pain triggers, although long durations of keyboard and mouse use appear to contribute. Clinical findings suggest a multifactorial presentation consistent with very early Dupuytren?s contracture, mild/early de Quervain?s tenosynovitis, and mild carpal tunnel syndrome, though no formal diagnosis was made. Current limitations include disrupted sleep, intolerance to restrictive splinting, pain impacting participation in leisure occupations such as quilting, and potential barriers to implementing ergonomic work modifications. Patient would benefit from skilled OT services to address pain management, joint protection and ergonomic strategies, progression of tolerated orthotic supports, activity modification, and strengthening and mobility as appropriate to improve occupational participation and prevent further progression of symptoms. Reviewed with Goals,Progress Being Made,Home Exercise Program Patient Patient Good Understanding Plan Length of treatment 12 (weeks) Plan of Care Start 08/30/25 Date Plan of Care End 11/22/25 Date Treatment Frequency Once a Week Treatment Duration 60 Minutes Therapeutic Contents Adaptive Equipment Education,Client Education, Functional Activities,Home Exercise Program,Joint Protection,Manual Therapy,Education,Orthotic Fitting & Training,Self-Care,Stretching/Flexibility Activities, Therapeutic Activities,Therapeutic Exercises,Modalities Types of Modalities Ice Massage,Other Additional Types of MHP, paraffin Modalities Patient Instruction Home Exercise Program,Plan of Care,Questions/Concerns Patient Continue with Current Program Recommendations Electronically Signed by: Gloria Harris OT 08/30/25 [id number] If you are in agreement with this Plan of Care, please return a signed and dated copy. I have reviewed this Plan of Care and certify that the skilled therapy services above are required to meet the patient?s needs. Physician Signature Date Printed Name and Credentials Clinical Instructor Signature Printed Name and Credentials
--- NOTE | 2025-09-15 14:25 | OT.OP.TRT ---
Visit Care Team Role Provider Type Erica Rangel DO Primary Care Provider Physician Specialty: Family Practice Address: [address] [place] [address], [address], [place], [address] Email: [email or web address] Ashwin Murguia MD Attending Provider Physician Referring Provider Specialty: Orthopedics Orthopedic Surgery Address: [address], [place], [address] Email: Occupational Therapy Treatment Note OT Outpatient Treatment Note - Adult Start: 08/30/25 12:55 Freq: Status: Active Protocol: Document 09/14/25 16:15 (Rec: 09/13/25 13:34 [id number]) OT Outpatient Adult Treatment Note Session Time Visit Start Date 09/14/25 Visit Start Time 16:15 Visit Stop Time 17:00 Visit Information Visit Number 2 of 12 Plan of Care Dates 08/30/25-11/22/25 Insurance no PA for initial eval only then call to request OT Information visits with POC/eval Setting Treatment Setting Outpatient Care Visit Type Note Type Treatment Note - Subjective Identification Type Name Identification Medical Record Reconciled With Observations It has been a difficult week overall - Objective Short Term Goals (Within 4 weeks): 1. Patient will demonstrate independence in use of kinesiotaping and ice massage for symptom management to improve ability to sleep through the night with no more than one episode of pain-related waking. 2. Patient will trial at least one ergonomic modification at work (e.g., stationary mouse or use of dictation) with therapist guidance and report impact on symptoms. 3. Patient will increase tolerance of orthotic wear ( thumb spica or alternative neoprene brace) to a minimum of 2 consecutive hours daily without significant discomfort. 4. Patient will report a decrease in frequency of sharp pain episodes from daily to no more than 3 times per week through consistent use of activity modification and self-management techniques. 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 Patient will report ability to complete quilting activities for 60 minutes with no more than 2/10 pain in R hand. 2. Patient will achieve uninterrupted sleep through the night at least 5 out of 7 nights per week without waking from R hand pain. 3. 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 4. Patient will demonstrate independence in ergonomic strategies, orthotic management, and home exercise program to support long-term self-management and prevention of symptom recurrence. - Treatment 1 Descriptor Patient was seen for her first follow-up visit and reports fair compliance with prescribed bracing, wearing it consistently at night but noting difficulty tolerating it during daytime activities due to restrictiveness. Kinesiotaping was discussed but deferred this session as patient reported limited perceived benefit from prior application. A tuning fork sequence was completed to promote circulation and reduce localized irritation. Home exercise program (HEP ) was initiated and reviewed in detail, including education on proper sequencing and progression through Phase 1 and introduction to Phase 2 as tolerated. Education reinforced the use of gentle self-massage to the webspace, thenar eminence, and proximal forearm for soft tissue mobility, as well as ice massage, rest, and continued adherence to bracing as tolerated. Patient completed one set of ten repetitions of AAROM exercises with maximal verbal and visual cues and demonstrated good return demonstration and comprehension of activity modification principles. Patient reported a subjective decrease in pain at the conclusion of the session and verbalized clear understanding of how to monitor and adjust exercise intensity if symptoms increase. Visual Cues Max Cues Verbal Cues Max Cues - Assessment Patient Response to Good Treatment Rehabilitation Good Potential Impairments ADLs,Contractures,Coordination/Dexterity,Functional Identified Activities,Pain,Recreational Activities,Meaningful Activities Progress Towards Good Progress Goals Assessment of Improving Overall Progress Assessment of Patient presents with ongoing right hand pain Improvement consistent with mild de Quervain?s tenosynovitis and possible early Dupuytren?s involvement. She continues to demonstrate good motivation and engagement in treatment, with excellent compliance to her HEP and education recommendations. Patient?s overall symptom profile appears to be improving, with reduced pain intensity and improved understanding of self-management strategies. Persistent challenges include limited tolerance to daytime orthotic use due to restrictiveness and intermittent activity-related discomfort. Continued skilled occupational therapy remains indicated to further address pain management, promote tendon mobility and soft tissue flexibility, and facilitate safe strengthening progression. Ongoing emphasis will be placed on ergonomic adaptation, graded activity participation, and optimization of bracing and exercise tolerance to enhance functional use of the right hand during daily and leisure tasks. Home Exercise Phase 1 AAROM exercises: thumb adduction, thumb Program extension, radial abduction, and ulnar deviation Reviewed with Goals,Progress Being Made,Home Exercise Program Patient/Caregiver Patient/Caregiver Good Understanding - Plan Therapy Continue with Current Program Recommendations Amount of Therapy 2-3 Months Recommended Frequency of Once a Week Treatment Length of Session 45 Minutes Therapeutic Contents Adaptive Equipment Education,Client Education, Functional Activities,Home Exercise Program,Joint Protection,Manual Therapy,Education,Orthotic Fitting & Training,Self-Care,Stretching/Flexibility Activities, Therapeutic Activities,Therapeutic Exercises,Modalities Modalities As Needed Types of Modalities Ice Massage,Other Additional Types of MHP, paraffin Modalities
--- NOTE | 2025-09-15 16:00 | OT.OP.TRT ---
Visit Care Team Role Provider Type Erica Rangel DO Primary Care Provider Physician Specialty: Family Practice Address: [address] [place] [address], [address], [place], [address] Email: [email or web address] Ashwin Murguia MD Attending Provider Physician Referring Provider Specialty: Orthopedics Orthopedic Surgery Address: [address], [place], [address] Email: Occupational Therapy Treatment Note OT Outpatient Treatment Note - Adult Start: 08/30/25 12:55 Freq: Status: Active Protocol: Document 09/14/25 16:15 (Rec: 09/13/25 13:34 [id number]) OT Outpatient Adult Treatment Note Session Time Visit Start Date 09/14/25 Visit Start Time 16:15 Visit Stop Time 17:00 Visit Information Visit Number 2 of 12 Plan of Care Dates 08/30/25-11/22/25 Insurance no PA for initial eval only then call to request OT Information visits with POC/eval Setting Treatment Setting Outpatient Care Visit Type Note Type Treatment Note - Subjective Identification Type Name Identification Medical Record Reconciled With Observations It has been a difficult week overall - Objective Short Term Goals (Within 4 weeks): 1. Patient will demonstrate independence in use of kinesiotaping and ice massage for symptom management to improve ability to sleep through the night with no more than one episode of pain-related waking. 2. Patient will trial at least one ergonomic modification at work (e.g., stationary mouse or use of dictation) with therapist guidance and report impact on symptoms. 3. Patient will increase tolerance of orthotic wear ( thumb spica or alternative neoprene brace) to a minimum of 2 consecutive hours daily without significant discomfort. 4. Patient will report a decrease in frequency of sharp pain episodes from daily to no more than 3 times per week through consistent use of activity modification and self-management techniques. 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 Patient will report ability to complete quilting activities for 60 minutes with no more than 2/10 pain in R hand. 2. Patient will achieve uninterrupted sleep through the night at least 5 out of 7 nights per week without waking from R hand pain. 3. 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 4. Patient will demonstrate independence in ergonomic strategies, orthotic management, and home exercise program to support long-term self-management and prevention of symptom recurrence. - Treatment 1 Descriptor Patient was seen for her first follow-up visit and reports fair compliance with prescribed bracing, wearing it consistently at night but noting difficulty tolerating it during daytime activities due to restrictiveness. Kinesiotaping was discussed but deferred this session as patient reported limited perceived benefit from prior application. A tuning fork sequence was completed to promote circulation and reduce localized irritation. Home exercise program (HEP ) was initiated and reviewed in detail, including education on proper sequencing and progression through Phase 1 and introduction to Phase 2 as tolerated. Education reinforced the use of gentle self-massage to the webspace, thenar eminence, and proximal forearm for soft tissue mobility, as well as ice massage, rest, and continued adherence to bracing as tolerated. Pt demonstrated good comprehension of activity modification principles. Patient reported a subjective decrease in pain at the conclusion of the session and verbalized clear understanding of how to monitor and adjust exercise intensity if symptoms increase. Visual Cues Max Cues Verbal Cues Max Cues Exercises 1 Descriptor Home exercise program (HEP) was initiated and reviewed in detail, including education on proper sequencing and progression through Phase 1 and introduction to Phase 2 as tolerated. Education reinforced the use of gentle self-massage to the webspace, thenar eminence, and proximal forearm for soft tissue mobility, as well as ice massage, rest, and continued adherence to bracing as tolerated. Patient completed 1x10 repetitions of AAROM exercises with maximal verbal and visual cues and demonstrated good return demonstration Visual Cues Max Cues Verbal Cues Max Cues Manual Therapy Manual Therapy A tuning fork sequence was completed to promote circulation and reduce localized irritation. Performed gentle self-massage to the webspace, thenar eminence, and proximal forearm for soft tissue mobility, with subjective improvement in muscle tension and mobility and pt educated throughout on gentle self-massage to the webspace, thenar eminence, and proximal forearm, as well as use of ice massage, rest, and continued adherence to bracing as tolerated. Pt verbalized good understanding of all teaching though admits compliance may be difficult for her with her work and lifestyle - Assessment Patient Response to Good Treatment Rehabilitation Good Potential Impairments ADLs,Contractures,Coordination/Dexterity,Functional Identified Activities,Pain,Recreational Activities,Meaningful Activities Progress Towards Good Progress Goals Assessment of Improving Overall Progress Assessment of Patient presents with ongoing right hand pain Improvement consistent with mild de Quervain?s tenosynovitis and possible early Dupuytren?s involvement. She continues to demonstrate good motivation and engagement in treatment, with excellent compliance to her HEP and education recommendations. Patient?s overall symptom profile appears to be improving, with reduced pain intensity and improved understanding of self-management strategies. Persistent challenges include limited tolerance to daytime orthotic use due to restrictiveness and intermittent activity-related discomfort. Continued skilled occupational therapy remains indicated to further address pain management, promote tendon mobility and soft tissue flexibility, and facilitate safe strengthening progression. Ongoing emphasis will be placed on ergonomic adaptation, graded activity participation, and optimization of bracing and exercise tolerance to enhance functional use of the right hand during daily and leisure tasks. Home Exercise Phase 1 AAROM exercises: thumb adduction, thumb Program extension, radial abduction, and ulnar deviation Reviewed with Goals,Progress Being Made,Home Exercise Program Patient/Caregiver Patient/Caregiver Good Understanding - Plan Therapy Continue with Current Program Recommendations Amount of Therapy 2-3 Months Recommended Frequency of Once a Week Treatment Length of Session 45 Minutes Therapeutic Contents Adaptive Equipment Education,Client Education, Functional Activities,Home Exercise Program,Joint Protection,Manual Therapy,Education,Orthotic Fitting & Training,Self-Care,Stretching/Flexibility Activities, Therapeutic Activities,Therapeutic Exercises,Modalities Modalities As Needed Types of Modalities Ice Massage,Other Additional Types of MHP, paraffin Modalities
--- NOTE | 2025-09-21 16:11 | OT.OP.TRT ---
Visit Care Team Role Provider Type Erica Rangel DO Primary Care Provider Physician Specialty: Family Practice Address: [address] [place] [address], [address], [place], [address] Email: [email or web address] Ashwin Murguia MD Attending Provider Physician Referring Provider Specialty: Orthopedics Orthopedic Surgery Address: [address], [place], [address] Email: Occupational Therapy Treatment Note OT Outpatient Treatment Note - Adult Start: 08/30/25 12:55 Freq: Status: Active Protocol: Document 09/21/25 13:15 (Rec: 09/21/25 11:51 [id number]) OT Outpatient Adult Treatment Note Session Time Visit Start Date 09/21/25 Visit Start Time 15:15 Visit Stop Time 16:00 Visit Information Visit Number 3 of 12 Plan of Care Dates 08/30/25-11/22/25 Insurance no PA for initial eval only then call to request OT Information visits with POC/eval Setting Treatment Setting Outpatient Care Visit Type Note Type Treatment Note - Subjective Identification Type Name Identification Medical Record Reconciled With Observations I think the pain intensity is the same but it does seem overall less bothersome than it has been Patient/Caregiver Fair Compliance with Home Exercise Program - Objective Short Term Goals (Within 4 weeks): 1. Patient will demonstrate independence in use of kinesiotaping and ice massage for symptom management to improve ability to sleep through the night with no more than one episode of pain-related waking. 2. Patient will trial at least one ergonomic modification at work (e.g., stationary mouse or use of dictation) with therapist guidance and report impact on symptoms. 3. Patient will increase tolerance of orthotic wear ( thumb spica or alternative neoprene brace) to a minimum of 2 consecutive hours daily without significant discomfort. 4. Patient will report a decrease in frequency of sharp pain episodes from daily to no more than 3 times per week through consistent use of activity modification and self-management techniques. 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 Patient will report ability to complete quilting activities for 60 minutes with no more than 2/10 pain in R hand. 2. Patient will achieve uninterrupted sleep through the night at least 5 out of 7 nights per week without waking from R hand pain. 3. 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 4. Patient will demonstrate independence in ergonomic strategies, orthotic management, and home exercise program to support long-term self-management and prevention of symptom recurrence. - Treatment 1 Descriptor Patient participated in a progression of therapeutic exercises focusing on Phase 2 strengthening for right hand and wrist stability. Session began with soft tissue massage and brief AROM warm-up to the thenar eminence, webspace, and distal forearm to promote circulation and tissue mobility. Patient completed one set of ten repetitions of isometric strengthening for thumb adduction, extension, and radial abduction, and for wrist flexion, extension, and radial deviation within pain-free ranges. A brief trial of light resistive wrist extension using TheraBand was attempted but produced discomfort, and the activity was discontinued. Education was reinforced regarding exercise grading, emphasizing submaximal effort and avoidance of pain while maintaining sufficient challenge for tendon activation. Patient required maximal verbal and visual cues for proper form and pacing during exercises but demonstrated good return demonstration and verbal understanding of how to progress or regress activities at home based on symptom response. Continued education was provided on joint protection, use of brief bracing intervals during repetitive work tasks, and the importance of consistent adherence to the home exercise program. Visual Cues Max Cues Verbal Cues Max Cues - Assessment Patient Response to Good Treatment Rehabilitation Good Potential Impairments ADLs,Contractures,Coordination/Dexterity,Functional Identified Activities,Pain,Recreational Activities,Meaningful Activities Progress Towards Good Progress Goals Assessment of Improving Overall Progress Assessment of Patient presents with stable pain levels and Improvement demonstrates ongoing engagement and motivation in therapy. She tolerated progression to isometric strengthening without symptom aggravation aside from mild pain during resisted wrist extension, which was appropriately modified. Patient continues to display limited tolerance for daytime brace use due to interference with occupational tasks but reports adherence as able. Her consistent participation in home exercises and understanding of activity modification indicate strong carryover of education. She continues to demonstrate need for skilled occupational therapy to support advancement of strengthening within safe parameters, reinforce ergonomic and joint protection strategies, and improve tolerance for graded activity participation to reduce symptom recurrence and support return to full participation in work and leisure tasks. Home Exercise Phase 1 AAROM exercises: thumb adduction, thumb Program extension, radial abduction, and ulnar deviation, progressed to isometric exercises 09/21/25 Reviewed with Goals,Progress Being Made,Home Exercise Program Patient/Caregiver Patient/Caregiver Good Understanding - Plan Therapy Continue with Current Program Recommendations Amount of Therapy 2-3 Months Recommended Frequency of Once a Week Treatment Length of Session 45 Minutes Therapeutic Contents Adaptive Equipment Education,Client Education, Functional Activities,Home Exercise Program,Joint Protection,Manual Therapy,Education,Orthotic Fitting & Training,Self-Care,Stretching/Flexibility Activities, Therapeutic Activities,Therapeutic Exercises,Modalities Modalities As Needed Types of Modalities Ice Massage,Other Additional Types of MHP, paraffin Modalities
--- NOTE | 2025-10-03 12:32 | OT.OP.DC ---
Visit Care Team Role Provider Type Erica Rangel DO Primary Care Provider Physician Address: [address] [place] [address], [address], [place], [address] Email: [email or web address] Ashwin Murguia MD Attending Provider Physician Referring Provider Address: [address], [place], [address] Email: OT Outpatient OT Outpatient Adult Evaluation Start: 08/30/25 12:55 Freq: Status: Active Protocol: Document 08/30/25 16:15 (Rec: 08/30/25 12:59 [id number]) General Information - Adult Visit Information Visit Number 1 of 12 Plan of Care Dates 08/30/25-11/22/25 Insurance no pre-auth initial eval only then call to request OT Information eval with EVAL/POC to Session Time Visit Start Date 08/30/25 Visit Start Time 16:15 Visit Stop Time 17:00 Setting Treatment Setting Outpatient Care Visit Type Note Type Initial Evaluation Referral Referring Physician Dr. Arnulfo Murguia Reason for Referral Radial styloid tenosynovitis Identification Identification Yes Confirmed Identification EMR Confirmed By Social Information Social History I may have a hard time changing all of those things Patient Questionnaires Quick Dash- Upper Extremity Quick Dash UE Score 6.8 Quick Dash UE 1 to 19% Impaired (Score 1-19) Impairment Quick Dash- Work and Sports Modules Quick Dash W&S Score 0 Quick Dash Work and 0% Impaired (Score 0) Sport Impairment Goals Objective Measurements Objective Michael?s test: negative Measurements Phalen?s test: elicited pain at R MP/CMC joint but no numbness or tingling Reports waking with R hand in fist position; pinky ligament more pronounced on R compared to L Pain onset most noticeable after activity rather than during activity; intermittent sharp pain at night that can wake patient Symptoms not provoked by gardening, weeding, painting, twisting doorknobs, or lifting weights Splint: described as thumb spica, poorly tolerated at night due to restrictiveness Shredder Tender Peat and pinch strength not tested this visit (deferred due to patient request for kinesiotape education) Treatment Treatment Patient received extensive education regarding the anatomy and physiology of common conditions consistent with her presentation, including early Dupuytren?s contracture, mild/early de Quervain?s tenosynovitis, and mild carpal tunnel syndrome. Education emphasized the inflammatory process, symptom presentation, and the importance of activity modification and reduction of repetitive use to decrease exacerbation. Strategies for symptom management were reviewed including trial use of a brace as tolerated, ice massage, and use of anti- inflammatories as appropriate. Ergonomic recommendations such as use of a stationary mouse with roller ball and dictation for work tasks were discussed , although patient expressed hesitance toward work modifications. Short Term Goals Short Term Goals (Within 4 weeks): 1. Patient will demonstrate independence in use of kinesiotaping and ice massage for symptom management to improve ability to sleep through the night with no more than one episode of pain-related waking. 2. Patient will trial at least one ergonomic modification at work (e.g., stationary mouse or use of dictation) with therapist guidance and report impact on symptoms. 3. Patient will increase tolerance of orthotic wear ( thumb spica or alternative neoprene brace) to a minimum of 2 consecutive hours daily without significant discomfort. 4. Patient will report a decrease in frequency of sharp pain episodes from daily to no more than 3 times per week through consistent use of activity modification and self-management techniques. 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 Patient will report ability to complete quilting activities for 60 minutes with no more than 2/10 pain in R hand. 2. Patient will achieve uninterrupted sleep through the night at least 5 out of 7 nights per week without waking from R hand pain. 3. 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 4. Patient will demonstrate independence in ergonomic strategies, orthotic management, and home exercise program to support long-term self-management and prevention of symptom recurrence. Assessment/Plan Assessment Patient Response Good Rehabilitation Good Potential Impairments ADLs,Functional Activities,Pain,Recreational Activities Identified ,Meaningful Activities Treatment Assessment 70-year-old female with a history of R thumb MP trigger finger release and no history of carpal tunnel syndrome, referred to occupational therapy by Dr. Ashwin Murguia for evaluation of R hand pain with suspected de Quervain?s tenosynovitis. Symptoms began approximately six months ago and have been inconsistent , primarily characterized by sharp pain that arises after activity and nocturnal pain that occasionally wakes her from sleep. Functional tasks such as gardening, painting, and gripping objects are not significant pain triggers, although long durations of keyboard and mouse use appear to contribute. Clinical findings suggest a multifactorial presentation consistent with very early Dupuytren?s contracture, mild/early de Quervain?s tenosynovitis, and mild carpal tunnel syndrome, though no formal diagnosis was made. Current limitations include disrupted sleep, intolerance to restrictive splinting, pain impacting participation in leisure occupations such as quilting, and potential barriers to implementing ergonomic work modifications. Patient would benefit from skilled OT services to address pain management, joint protection and ergonomic strategies, progression of tolerated orthotic supports, activity modification, and strengthening and mobility as appropriate to improve occupational participation and prevent further progression of symptoms. Reviewed with Goals,Progress Being Made,Home Exercise Program Patient Patient Good Understanding Plan Length of treatment 12 (weeks) Plan of Care Start 08/30/25 Date Plan of Care End 11/22/25 Date Treatment Frequency Once a Week Treatment Duration 60 Minutes Therapeutic Contents Adaptive Equipment Education,Client Education, Functional Activities,Home Exercise Program,Joint Protection,Manual Therapy,Education,Orthotic Fitting & Training,Self-Care,Stretching/Flexibility Activities, Therapeutic Activities,Therapeutic Exercises,Modalities Types of Modalities Ice Massage,Other Additional Types of MHP, paraffin Modalities Patient Instruction Home Exercise Program,Plan of Care,Questions/Concerns Patient Continue with Current Program Recommendations Functional Wrist/Hand Scan Hand Side Sensory Assessment Sensory Profile2 OT Outpatient Treatment Note - Adult Start: 08/30/25 12:55 Freq: Status: Active Protocol: Document 10/03/25 11:55 (Rec: 09/22/25 15:21 [id number]) OT Outpatient Adult Treatment Note Visit Information Plan of Care Dates 08/30/25-11/22/25 Note prepped for 09/26, anticipate d /c Insurance no PA for initial eval only then call to request OT Information visits with POC/eval Setting Treatment Setting Outpatient Care Visit Type Note Type Discharge Summary General Information General Information Per scheduling, pt cancelled last appt without reschedule. Pt with minimal progress noted due to poor compliance with HEP and therapy recommendations and patient only seen for 2 follow up visits following evaluation. Pt reported limited compliance with brace wear. - - Objective Short Term Goals (Within 4 weeks): 1. Patient will demonstrate independence in use of kinesiotaping and ice massage for symptom management to improve ability to sleep through the night with no more than one episode of pain-related waking. 2. Patient will trial at least one ergonomic modification at work (e.g., stationary mouse or use of dictation) with therapist guidance and report impact on symptoms. 3. Patient will increase tolerance of orthotic wear ( thumb spica or alternative neoprene brace) to a minimum of 2 consecutive hours daily without significant discomfort. 4. Patient will report a decrease in frequency of sharp pain episodes from daily to no more than 3 times per week through consistent use of activity modification and self-management techniques. Alf Goals (Within 12 weeks): 1. Patient will report ability to complete quilting activities for 60 minutes with no more than 2/10 pain in R hand. 2. Patient will achieve uninterrupted sleep through the night at least 5 out of 7 nights per week without waking from R hand pain. 3. 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 4. Patient will demonstrate independence in ergonomic strategies, orthotic management, and home exercise program to support long-term self-management and prevention of symptom recurrence. - - Assessment Patient Response to Fair Treatment Rehabilitation Fair Potential Impairments ADLs,Contractures,Coordination/Dexterity,Functional Identified Activities,Pain,Recreational Activities,Meaningful Activities Progress Towards Slow Progress Goals Assessment of Unchanged Overall Progress Assessment of 70-year-old female with a history of right thumb MP Improvement trigger finger release, was referred to occupational therapy for evaluation and management of right hand pain suspected to be related to de Quervain?s tenosynovitis. At initial evaluation, she presented with intermittent sharp pain occurring primarily after activity and occasionally waking her at night, with tenderness along the radial wrist and thumb but a negative Michael?s test. Clinical presentation was consistent with mild de Quervain?s tenosynovitis with possible early Dupuytren?s changes and mild carpal tunnel involvement. Therapy focused on patient education, activity modification, use of a thumb spica orthosis as tolerated, and initiation of a graded home exercise program to improve tendon mobility and reduce inflammation. The patient was seen for the initial evaluation and two follow-up visits, with minimal progress noted overall. She reported limited compliance with bracing due to discomfort during daytime activities and demonstrated poor adherence to her home exercise program and other therapy recommendations. Despite education and instruction on exercise progression, ergonomic modifications, and self-management strategies, she was unable to achieve measurable progress toward established goals within the short course of care. The patient cancelled her most recent visit and did not return to therapy. Discharge is therefore completed at this time per patient choice and non-rescheduling, prior to full attainment of short- or long-term goals. Continued adherence to her home program, ergonomic strategies, and bracing as tolerated is recommended to support symptom management and prevent further progression. If symptoms persist, patient can request new referral at that time. Home Exercise Phase 1 AAROM exercises: thumb adduction, thumb Program extension, radial abduction, and ulnar deviation, progressed to isometric exercises 09/21/25 Reviewed with Goals,Progress Being Made,Home Exercise Program Patient/Caregiver Patient/Caregiver Good Understanding - Plan Therapy Discharge from Occupational Therapy Recommendations Amount of Therapy No Further Therapy Recommended Frequency of No Further Therapy Treatment
== END 2025-10-04 14:01 | disposition home or self-care (01) ==
LOC: OT 15:15
PROVIDERS: PCP Family Medicine; Referring Provider Orthopaedic Surgery; Visit Provider Orthopaedic Surgery
DX: M65.4 Radial styloid tenosynovitis [de Quervain] (principal)
CPT/HCPCS: 97110; 97140; 97165; 97530

== ENCOUNTER → 2025-10-13 14:47 | Outpatient (CLI) | payer OTHER, SELFPAY ==
[2022-10-02 12:19] VITALS: BMI 34.6
--- NOTE | 2025-10-13 14:48 | DI.RAD.S_ITS ---
PROCEDURE: XR DEXA AXIAL SKELETON INDICATIONS: Osteoporosis screening COMPARISON: [facility], , XR DEXA AXIAL SKELETON, 07/29/2023, 12:18. [facility], CR, XR DEXA AXIAL SKELETON, 07/07/2018, 15:06. FINDINGS: Lumbar Spine: Bone mineral density 0.947 g/cm2, T score -0.9, unchanged. Left Femoral Neck: Bone mineral density 0.595 g/cm2, T score -2.3. Left Hip: Bone mineral density 0.734 g/cm2, T score -1.7, previously -1.4. Fracture Risk Calculation (when applicable): 10-year fracture risk of a major osteoporotic fracture 12 percent and of a hip fracture 2.5 percent. (T score greater or equal to -1.0 to: NORMAL) (T score from -1.1 to -2.4: OSTEOPENIA) (T score less than or equal to -2.5: OSTEOPOROSIS) IMPRESSION: Osteopenia. Slightly decreased bone mineralization of the left hip. Follow-up guidelines as follows: Osteoporosis: Consider a repeat DEXA and Vertebral Fracture Assessment (VFA) exam in 2 years or sooner if medically necessary, to reassess this patient's status. Osteopenia: Consider a repeat DEXA in 2-3 years to reassess this patient's status, or if there is a new clinical indication. Normal: Consider a repeat DEXA in 5 years or sooner, or if there is a new clinical indication. All treatment decisions require clinical judgment and consideration of individual patient factors, including patient preferences, comorbidities, previous drug use, risk factors not captured in the FRAX model (e.g., frailty, falls, vitamin D deficiency, increased bone turnover, interval significant decline in bone density ) and possible under- or over-estimation of fracture risk by FRAX. In addition, the NOF Guide recommends that FDA-approved medical therapies be considered in postmenopausal women and men age >= 50 years with a: * Hip or vertebral (clinical or morphometric) fracture * T-score of <=-2.5 at the spine or hip * Ten-year fracture probability by FRAX of >= 3% for hip fracture or >=20% for major osteoporotic fracture. Dictated by: Rush Worthington M.D. on 10/14/2025 at 10:21 Approved by: Rush Worthington M.D. on 10/14/2025 at 10:21
== END ==
PROVIDERS: PCP Family Medicine; Referring Provider Family Medicine; Visit Provider Family Medicine
DX: M85.89 Other specified disorders of bone density and structure, multiple sites (principal); Z78.0 Asymptomatic menopausal state
CPT/HCPCS: 77080